=== PATIENT | male | born 1955 | race Caucasian/White ===

== ENCOUNTER 2025-09-13 11:56 | Emergency (ER) | payer MEDICARE, OTHER ==
[2025-09-13] MEDS ORDERED: Dexamethasone 10 MG/ML VIAL ONE (12:46)
[2025-09-13] MEDS ORDERED: cefTRIAXone (ROCEPHIN) 1 GM VIAL ONE (12:46)
== END 2025-09-13 14:20 | disposition home or self-care (01) ==
LOC: ERS 11:56
DX: G51.0 Bell's palsy (principal); J01.90 Acute sinusitis, unspecified; I10 Essential (primary) hypertension; E11.9 Type 2 diabetes mellitus without complications
CPT/HCPCS: 70450; 82962; J0696; J1100; 36416; 96365; 96375